=== PATIENT | female | born 1995 | race Caucasian/White ===

== ENCOUNTER 2018-09-14 14:34 | Emergency (ER) | payer BC ==
[~2018-09-14] VITALS: Ht 157.4 cm; Wt 46.3 kg
[2018-09-14 15:33] LABS: BILIRUBIN NEGATIVE (NEGATIVE); BLOOD 1+ (NEGATIVE); CLARITY CLEAR (CLEAR); COLOR YELLOW (YELLOW); GLUCOSE NEGATIVE (NEGATIVE); KETONE TRACE (NEGATIVE); LEUKO ESTERASE NEGATIVE (NEGATIVE); NITRITE NEGATIVE (NEGATIVE); PH 5.5 (5.0-9.0); SPECIFIC GRAVITY 1.025 (1.005-1.030); UROBILINOGEN 0.2 E.U./dl (0.2-1.0)
[2018-09-14 15:45] LABS: BACTERIA 2+
== END 2018-09-14 16:45 | disposition home or self-care (01) ==
LOC: ED 14:34
PROVIDERS: Physician Assistant
DX: Z32.01 Encounter for pregnancy test, result positive (principal); N93.8 Other specified abnormal uterine and vaginal bleeding; M54.5 Low back pain; Z88.0 Allergy status to penicillin

== ENCOUNTER 2020-02-16 15:36 | Emergency (ER) | payer BC ==
[~2020-02-16] VITALS: Ht 157.4 cm; Wt 50.8 kg
[2020-02-16] MEDS ORDERED: ZITHROMAX250 MG PO (19:13)
[2020-02-16] MEDS ORDERED: BLEPH-10 5 ML5 ML OP (19:13)
== END 2020-02-16 19:20 | disposition home or self-care (01) ==
LOC: ED 15:36
DX: H10.89 Other conjunctivitis (principal); J32.9 Chronic sinusitis, unspecified; Z88.0 Allergy status to penicillin

== ENCOUNTER 2020-02-21 14:52 | Emergency (ER) | payer BC ==
[~2020-02-21] VITALS: Ht 157.4 cm; Wt 50.8 kg
[~2020-02-21 14:52] MED LIST: BLEPH-10 5 ML5 ML OP; ZITHROMAX250 MG PO
[2020-02-21 16:28] LABS: BASO % 0.5 % (0.0-1.0); EOS # 0.2 10*3/uL (0.0-0.4); HEMATOCRIT 43.7 % (37.0-47.0); LYMPH # 1.8 10*3/uL (1.3-4.4); LYMPH % 23.5 % (27.0-41.0); MEAN CORPUSCULAR HGB 30.3 pg (27.0-31.0); MEAN PLATELET VOLUME 9.8 fl (9.6-12.3); MONO # 0.4 10*3/uL (0.1-1.0); NEUT # 5.1 10*3/uL (2.3-7.9); NEUT % 68.9 % (47.0-73.0); PLATELET COUNT AUTOMATED 272 10*3/uL (130-400); RED BLOOD COUNT 4.75 10*6/uL (4.10-5.10); WHITE BLOOD COUNT 7.5 10*3/uL (4.8-10.8)
[2020-02-21 16:47] LABS: ALKALINE PHOSPHATASE 87 U/L (45-117); BUN 10 mg/dl (7-24); CHLORIDE 110 mmol/L (98-107); CREATININE 0.79 mg/dL (0.55-1.02); POTASSIUM 3.5 mmol/L (3.5-5.1); SGOT/AST 10 IU/L (3-35); SGPT/ALT 26 U/L (12-78); SODIUM 141 mmol/L (136-145)
== END 2020-02-21 19:12 | disposition home or self-care (01) ==
LOC: ED 14:52
PROVIDERS: Nurse Practitioner Family
DX: G43.909 Migraine, unspecified, not intractable, without status migrainosus (principal); R42 Dizziness and giddiness; Z88.0 Allergy status to penicillin; Z91.040 Latex allergy status

== ENCOUNTER 2020-02-28 18:03 | Emergency (ER) | payer BC ==
[~2020-02-28] VITALS: Ht 157.4 cm; Wt 50.8 kg
[2020-02-28 19:00] LABS: BILIRUBIN NEGATIVE (NEGATIVE); BLOOD TRACE-INTACT (NEGATIVE); CLARITY CLOUDY (CLEAR); COLOR YELLOW (YELLOW); GLUCOSE NEGATIVE (NEGATIVE); KETONE NEGATIVE (NEGATIVE); LEUKO ESTERASE 1+ (NEGATIVE); NITRITE NEGATIVE (NEGATIVE); PH 6.5 (5.0-9.0); SPECIFIC GRAVITY 1.015 (1.005-1.030); UROBILINOGEN 0.2 E.U./dl (0.2-1.0)
[2020-02-28 19:01] LABS: BACTERIA 1+; EPITHELIAL CELLS TNTC; MUCOUS TRACE; RBC 0-2 rbc/hpf (0-2)
[2020-02-28 19:04] LABS: BASO % 0.5 % (0.0-1.0); EOS # 0.3 10*3/uL (0.0-0.4); EOS % 3.3 % (1.0-4.0); HEMATOCRIT 42.3 % (37.0-47.0); LYMPH % 22.9 % (27.0-41.0); MEAN CELL VOLUME 92.4 fl (81.0-99.0); MEAN CORPUSCULAR HGB 29.9 pg (27.0-31.0); MEAN CORPUSCULAR HGB CONC 32.4 g/dl (33.0-37.0); MEAN PLATELET VOLUME 10.2 fl (9.6-12.3); MONO # 0.6 10*3/uL (0.1-1.0); MONO % 6.4 % (3.0-9.0); NEUT # 5.8 10*3/uL (2.3-7.9); NEUT % 66.7 % (47.0-73.0); PLATELET COUNT AUTOMATED 254 10*3/uL (130-400); RED BLOOD COUNT 4.58 10*6/uL (4.10-5.10); RED CELL DISTRI WIDTH 12.3 % (0-14.5); WHITE BLOOD COUNT 8.7 10*3/uL (4.8-10.8)
[2020-02-28 19:21] LABS: ALBUMIN 3.8 gm/dl (3.1-4.5); ALKALINE PHOSPHATASE 86 U/L (45-117); BUN 14 mg/dl (7-24); CHLORIDE 107 mmol/L (98-107); CREATININE 0.94 mg/dL (0.55-1.02); LIPASE 98 U/L (73-393); POTASSIUM 3.9 mmol/L (3.5-5.1); SGOT/AST 11 IU/L (3-35); SGPT/ALT 22 U/L (12-78); SODIUM 141 mmol/L (136-145); TOTAL PROTEIN 7.6 gm/dL (6.4-8.2)
[2020-02-28] MEDS ORDERED: MIRALAX POWDER17 G1 PO (20:54)
== END 2020-02-28 20:53 | disposition home or self-care (01) ==
LOC: ED 18:03
PROVIDERS: Physician Assistant
DX: K59.00 Constipation, unspecified (principal); Z88.0 Allergy status to penicillin; Z91.040 Latex allergy status

== ENCOUNTER → 2020-03-04 | Outpatient (CLI) | payer BC ==
[~2020-03-04] MED LIST changes: +MIRALAX POWDER17 G1 PO
[2020-03-04 14:19] LABS: BASO # 0.1 10*3/uL (0.0-0.1); BASO % 0.8 % (0.0-1.0); EOS # 0.2 10*3/uL (0.0-0.4); EOS % 2.7 % (1.0-4.0); HEMATOCRIT 42.6 % (37.0-47.0); LYMPH # 1.9 10*3/uL (1.3-4.4); LYMPH % 30.7 % (27.0-41.0); MEAN CORPUSCULAR HGB CONC 32.6 g/dl (33.0-37.0); MEAN PLATELET VOLUME 10.2 fl (9.6-12.3); MONO # 0.3 10*3/uL (0.1-1.0); MONO % 5.4 % (3.0-9.0); NEUT # 3.8 10*3/uL (2.3-7.9); NEUT % 60.2 % (47.0-73.0); PLATELET COUNT AUTOMATED 269 10*3/uL (130-400); RED BLOOD COUNT 4.63 10*6/uL (4.10-5.10); RED CELL DISTRI WIDTH 12.3 % (0-14.5); WHITE BLOOD COUNT 6.3 10*3/uL (4.8-10.8)
[2020-03-04 14:45] LABS: BUN 11 mg/dl (7-24); CHLORIDE 107 mmol/L (98-107); CREATININE 0.79 mg/dL (0.55-1.02); POTASSIUM 3.4 mmol/L (3.5-5.1); SODIUM 140 mmol/L (136-145)
== END | disposition home or self-care (01) ==
LOC: LAB 13:36
PROVIDERS: Surgery
DX: Z01.818 Encounter for other preprocedural examination (principal)

== ENCOUNTER → 2025-05-23 | Outpatient (CLI) | payer BC | END | disposition home or self-care (01) | LOC: US 00:27 | PROVIDERS: ATTEND Physician Assistant Medical | DX: R22.2 Localized swelling, mass and lump, trunk (principal); D48.5 Neoplasm of uncertain behavior of skin ==